=== PATIENT | male | born 1960 | race Caucasian/White ===

== ENCOUNTER 2021-05-06 05:10 | Inpatient (IN) | payer OTHER ==
[~2021-05-06] VITALS: Ht 188 cm; Wt 82.8 kg
[2021-05-06] MEDS ORDERED: LISI5 PO (06:37)
[2021-05-06] MEDS ORDERED: Naltrexone HCl50 MG PO (06:37)
[2021-05-06] MEDS ORDERED: CATAPRES-TTS 11 EAC1 PO (06:38)
[2021-05-06] MEDS ORDERED: ALBU2.5V5 INH (06:38)
[2021-05-06] MEDS ORDERED: ZYRTEC10 M2 PO (06:38)
[2021-05-06] MEDS ORDERED: HYDHCL25 PO (06:39)
[2021-05-06] MEDS ORDERED: TRAZ50 PO (06:39)
[2021-05-06 06:48] LABS: BASOPHILS ABSOLUTE AUTO 0.06 K/mm3 (0.00-0.23); BASOPHILS PERCENT AUTO 0 % (0-2); EOSINOPHILS ABSOLUTE AUTO 0.01 K/mm3 (0.00-0.68); EOSINOPHILS PERCENT AUTO 0 % (0-6); Hematocrit 40.8 % (37.0-53.0); Hemoglobin 13.8 g/dL (13.5-17.5); IMMATURE GRAN PERCENT AUTO 1 % (0-1); LYMPHOCYTES ABSOLUTE AUTO 0.95 K/mm3 (0.84-5.20); LYMPHOCYTES PERCENT AUTO 4 % (21-46); MONOCYTES ABSOLUTE AUTO 2.65 K/mm3 (0.16-1.47); MONOCYTES PERCENT AUTO 11 % (4-13); Mean Corpuscular HGB 31.4 pg (26.0-34.0); Mean Corpuscular HGB Conc 33.8 g/dL (31.5-36.5); Mean Corpuscular Volume 93 fL (80-100); Mean Platelet Volume 9.4 fL (9.1-12.4); NEUTROPHILS ABSOLUTE AUTO 21.12 K/mm3 (1.96-9.15); NEUTROPHILS PERCENT AUTO 85 % (41-73); Platelet Count 507 K/mm3 (150-400); RDW Coefficient Variation 12.4 % (11.7-14.2); RDW Standard Deviation 42.6 fL (35.1-46.3); Red Blood Cell Count 4.39 M/mm3 (4.30-5.90); White Blood Cell Count 24.99 K/mm3 (4.00-11.30)
[2021-05-06 06:59] LABS: Alanine Aminotransfer (ALT/SGP 63 U/L (12-78); Albumin, Blood 2.7 g/dL (3.4-5.0); Albumin/Globulin Ratio 0.5 (0.8-1.8); Alk Phos 129 U/L (50-136); Anion Gap 4 mmol/L (6-16); Aspartate Aminotrans (AST/SGOT 24 U/L (12-37); Blood Urea Nitrogen 22 mg/dL (8-24); Bun/Creatinine Ratio 20.6 (12.0-20.0); CO2, Blood 26 mmol/L (21-32); Calcium, Blood 9.5 mg/dL (8.5-10.1); Chloride, Blood 104 mmol/L (98-108); Creatinine, Blood 1.07 mg/dL (0.60-1.20); Globulin, Blood 5.4 g/dL (2.2-4.0); Glomerular Filtration Rate >60 (60-); Glucose, Blood 124 mg/dL (70-99); Potassium, Blood 4.5 mmol/L (3.5-5.5); Sodium, Blood 134 mmol/L (136-145); Total Protein, Blood 8.1 g/dL (6.4-8.2)
[2021-05-06 08:30] LABS: SARS-Cov-2 (COVID-19) PCR, MMC NEGATIVE (NEGATIVE)
[2021-05-06 11:52] LABS: Source, Urine Peds U Bag
[2021-05-06 11:56] LABS: Appearance, Urine Clear (Clear); Blood, Urine 4+ (Neg); Color, Urine Amber (P-Yellow); Glucose Qualitative, Urine Neg (Neg); Ketones, Urine Neg (Neg); Leukocyte Esterase, Urine 1+ (Neg); Nitrite, Urine Neg (Neg); Protein, Urine 2+ (Neg); Urobilinogen, Urine 2+ (Normal)
[2021-05-06 12:07] LABS: Bilirubin, Urine 1+ (Neg)
[2021-05-06 12:09] LABS: Bacteria Not Seen /hpf; Hyaline Casts Rare /lpf (0-2); Squamous Epithelial Cells Rare /hpf (Few)
[2021-05-06 12:10] LABS: WBC Cast Rare /lpf (0)
[2021-05-06 12:15] LABS: U Amphetamine Screen Not Detected; U Barbituate Screen Not Detected; U Benzodiazapine Screen Not Detected; U Cannabinoids Screen DETECTED; U Cocaine Screen Not Detected; U Methadone Screen Not Detected; U Methamphetamine Screen Not Detected; U Opiates Screen Not Detected; U Phencyclidine Screen Not Detected
[2021-05-06 12:16] LABS: U Buprenorphine Screen Not Detected; U Oxycodone Screen Not Detected; U Propoxyphene Screen Not Detected
[2021-05-06] MEDS ORDERED: MELA3 PO (13:22)
[2021-05-06 17:01] LABS: International Normalized Ratio 1.09; Prothrombin Time Results 11.4 Sec (9.7-11.5)
--- NOTE | 2021-05-06 17:43 | NUR ---
SHIFT SUMMARY PATIENT ADMITTED TO THE FLOOR AROUND MID-SHIFT. PATIENT ALERT AND ORIENTED THIS SHIFT. PATIENT INDEPENDENT TO THE BATHROOM. PATIENT MEDICATED 1X FOR ANXIETY PER EMAR, TEMPERATURE 101.6 THIS AFTTERNOON. PATIENT MEDICATED WITH TYLENOL FOR FEVER. PATIENT WITH MOIST, PRODUCTIVE COUGH THROUGHOUT THIS SHIFT. PATIENT ON IV ANTIBIOTICS FOR PNEUMONIA. ULTRASOUND COMPLETED DUE TO ABNORMAL CT OF UPPER CHEST/NECK. DVT IDENTIFIED, DR HARRINGTON NOTIFIED. HEPARIN DRIP ORDERED AND STARTED. PATIENT CURRENTLY SITTING UP IN BED WATCHING TELEVISION.
--- NOTE | 2021-05-06 18:14 | NUR ---
20 GAUGE IV STARTED TO RIGHT FOREARM. SMALL HEMATOMA NOTED ON INSERTION. FLUSHED IV WITH 20 ML OF NS. NO INCREASE IN SIZE OF HEMATOMA OR SWELLING NOTED. PATIENT DENIES PAIN. ABLE TO PULL BACK WITH BLOOD RETURN. ABLE TO PALPATE FLUID FLUSH ABOVE IV INSERTION SITE. IV HOOKED TO RUNNING FLUIDS PER ORDERS. IV REMAINS NON PAINFUL, NO CHANGES NOTED.
--- NOTE | 2021-05-06 20:38 | NUR ---
SPUTUM CUP LEFT FOR PT SAMPLE WHEN EXPECTORATED. PT ALERT AND W/O DISTRESS ON RA. PT STATES ABLE TO PROVIDE SAMPLES READILY AND W/O NEED FOR NT SX
[2021-05-07 01:39] LABS: BASOPHILS ABSOLUTE AUTO 0.06 K/mm3 (0.00-0.23); BASOPHILS PERCENT AUTO 0 % (0-2); EOSINOPHILS ABSOLUTE AUTO 0.09 K/mm3 (0.00-0.68); EOSINOPHILS PERCENT AUTO 0 % (0-6); Hematocrit 34.6 % (37.0-53.0); Hemoglobin 11.9 g/dL (13.5-17.5); IMMATURE GRAN ABSOLUTE AUTO 0.18 K/mm3 (0.00-0.10); IMMATURE GRAN PERCENT AUTO 1 % (0-1); LYMPHOCYTES ABSOLUTE AUTO 1.52 K/mm3 (0.84-5.20); LYMPHOCYTES PERCENT AUTO 7 % (21-46); MONOCYTES ABSOLUTE AUTO 2.78 K/mm3 (0.16-1.47); MONOCYTES PERCENT AUTO 13 % (4-13); Mean Corpuscular HGB 31.5 pg (26.0-34.0); Mean Corpuscular HGB Conc 34.4 g/dL (31.5-36.5); Mean Corpuscular Volume 92 fL (80-100); Mean Platelet Volume 8.7 fL (9.1-12.4); NEUTROPHILS ABSOLUTE AUTO 17.15 K/mm3 (1.96-9.15); NEUTROPHILS PERCENT AUTO 79 % (41-73); Platelet Count 396 K/mm3 (150-400); RDW Coefficient Variation 12.4 % (11.7-14.2); Red Blood Cell Count 3.78 M/mm3 (4.30-5.90); White Blood Cell Count 21.78 K/mm3 (4.00-11.30)
[2021-05-07 01:56] LABS: Alanine Aminotransfer (ALT/SGP 44 U/L (12-78); Albumin/Globulin Ratio 0.4 (0.8-1.8); Alk Phos 104 U/L (50-136); Anion Gap 5 mmol/L (6-16); Aspartate Aminotrans (AST/SGOT 15 U/L (12-37); Bilirubin, Total 0.7 mg/dL (0.1-1.0); Blood Urea Nitrogen 25 mg/dL (8-24); Bun/Creatinine Ratio 25.2 (12.0-20.0); CO2, Blood 24 mmol/L (21-32); Calcium, Blood 8.8 mg/dL (8.5-10.1); Chloride, Blood 109 mmol/L (98-108); Creatinine, Blood 0.99 mg/dL (0.60-1.20); Globulin, Blood 4.7 g/dL (2.2-4.0); Glomerular Filtration Rate >60 (60-); Glucose, Blood 120 mg/dL (70-99); Magnesium, Blood 1.8 mg/dL (1.6-2.4); Sodium, Blood 138 mmol/L (136-145); Total Protein, Blood 6.7 g/dL (6.4-8.2)
--- NOTE | 2021-05-07 04:36 | NUR ---
SUMMARY PT HAS COMPLAINED OF ANXIETY AND MUSCLE STIFFNESS. PT TX FOR ANXIETY PER EMAR W/ SOME RELIEF. PT STATES HE SLEPT SOME DURING SHIFT. PT CURRENTLY AWAKE IN NO DISTRESS. CALL LIGHT IN REACH.
--- NOTE | 2021-05-07 14:39 | NUR ---
SHIFT SUMMARY: TB RULE OUT PATIENT IS ALERT AND ORIENTED X4. VS ARE WNL AND IS ON RA. PATIENT DOES HAVE A HEADACHE AT TIMES. PAIN IS MEDICATED WITH PO PAIN MEDS. HE IS IND. IN THE ROOM. HE TOLERATES PO INTAKE AND IS VOIDING. PATIENT WAS ALSO ABLE TO SHOWER TODAY WHICH HE REPORTS "FELT GOOD". PATIENT STILL HAS HEPARIN DRIP RUNNING AND HAS ALSO RECIEVED ABX. HE IS CURRENTLY LAYING IN BED WATCHING TV. CALLS APPROPRIATLEY. CALL LIGHT WITHIN REACH. THE PLAN IS TO CONTINUE HEPARIN DRIP SINCE HE HAS A CLOT IN HIS JUGULAR. HE WILL ALSO CONTINUE ABX WITH FLUIDS.
[2021-05-07 15:10] LABS: FINAL INTERPRETATION Negative (.); HIV 1 AB Negative (Negative); HIV 2 AB Negative (Negative)
[2021-05-08 07:58] LABS: BASOPHILS ABSOLUTE AUTO 0.07 K/mm3 (0.00-0.23); BASOPHILS PERCENT AUTO 0 % (0-2); EOSINOPHILS ABSOLUTE AUTO 0.17 K/mm3 (0.00-0.68); EOSINOPHILS PERCENT AUTO 1 % (0-6); Hematocrit 38.3 % (37.0-53.0); Hemoglobin 12.5 g/dL (13.5-17.5); IMMATURE GRAN ABSOLUTE AUTO 0.18 K/mm3 (0.00-0.10); IMMATURE GRAN PERCENT AUTO 1 % (0-1); LYMPHOCYTES ABSOLUTE AUTO 1.61 K/mm3 (0.84-5.20); LYMPHOCYTES PERCENT AUTO 8 % (21-46); MONOCYTES ABSOLUTE AUTO 2.31 K/mm3 (0.16-1.47); MONOCYTES PERCENT AUTO 11 % (4-13); Mean Corpuscular HGB 31.4 pg (26.0-34.0); Mean Corpuscular HGB Conc 32.6 g/dL (31.5-36.5); Mean Corpuscular Volume 96 fL (80-100); NEUTROPHILS ABSOLUTE AUTO 16.69 K/mm3 (1.96-9.15); NEUTROPHILS PERCENT AUTO 79 % (41-73); Platelet Count 453 K/mm3 (150-400); RDW Coefficient Variation 12.5 % (11.7-14.2); RDW Standard Deviation 44.1 fL (35.1-46.3); Red Blood Cell Count 3.98 M/mm3 (4.30-5.90); White Blood Cell Count 21.03 K/mm3 (4.00-11.30)
[2021-05-08 08:06] LABS: Albumin, Blood 2.1 g/dL (3.4-5.0); Anion Gap 5 mmol/L (6-16); Blood Urea Nitrogen 16 mg/dL (8-24); Bun/Creatinine Ratio 15.7 (12.0-20.0); CO2, Blood 25 mmol/L (21-32); Calcium, Blood 9.3 mg/dL (8.5-10.1); Chloride, Blood 105 mmol/L (98-108); Creatinine, Blood 1.02 mg/dL (0.60-1.20); Glomerular Filtration Rate >60 (60-); Glucose, Blood 94 mg/dL (70-99); Phosphorus, Blood 3.9 mg/dL (2.5-4.9); Potassium, Blood 4.2 mmol/L (3.5-5.5); Sodium, Blood 135 mmol/L (136-145)
--- NOTE | 2021-05-08 18:57 | NUR ---
Alert and oriented x3 , able to make needs known . c/o generalized pain , lung and headache ,toradol and tramadol were given for pain management, it was effecive. Heparin bolus and rate adjustment was done twice per pharmacy order. Continue on negative pressure and droplet precaution . vital signs are stable. ABO therapy given , no adverse effects noted. Call light within reach . Continue to monitor.
--- NOTE | 2021-05-09 02:48 | NUR ---
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 HAD HIS BREATHING TREATMENT. HE ALSO HAD PAIN MEDS PER EMAR. BP ELEVATED BUT ON RECHECK WAS GOOD. WILL CONTINUE TO MONITOR HIM.
[2021-05-09 11:50] LABS: Albumin, Blood 1.7 g/dL (3.4-5.0); Anion Gap 4 mmol/L (6-16); BASOPHILS ABSOLUTE AUTO 0.08 K/mm3 (0.00-0.23); BASOPHILS PERCENT AUTO 1 % (0-2); Blood Urea Nitrogen 14 mg/dL (8-24); Bun/Creatinine Ratio 14.8 (12.0-20.0); CO2, Blood 26 mmol/L (21-32); Calcium, Blood 8.8 mg/dL (8.5-10.1); Chloride, Blood 106 mmol/L (98-108); Creatinine, Blood 0.95 mg/dL (0.60-1.20); EOSINOPHILS PERCENT AUTO 3 % (0-6); Glomerular Filtration Rate >60 (60-); Glucose, Blood 100 mg/dL (70-99); Hematocrit 33.3 % (37.0-53.0); Hemoglobin 10.8 g/dL (13.5-17.5); IMMATURE GRAN ABSOLUTE AUTO 0.12 K/mm3 (0.00-0.10); IMMATURE GRAN PERCENT AUTO 1 % (0-1); LYMPHOCYTES ABSOLUTE AUTO 1.44 K/mm3 (0.84-5.20); LYMPHOCYTES PERCENT AUTO 12 % (21-46); MONOCYTES ABSOLUTE AUTO 1.52 K/mm3 (0.16-1.47); MONOCYTES PERCENT AUTO 13 % (4-13); Mean Corpuscular HGB 30.6 pg (26.0-34.0); Mean Corpuscular HGB Conc 32.4 g/dL (31.5-36.5); Mean Corpuscular Volume 94 fL (80-100); Mean Platelet Volume 9.8 fL (9.1-12.4); NEUTROPHILS PERCENT AUTO 71 % (41-73); Phosphorus, Blood 4.1 mg/dL (2.5-4.9); Platelet Count 399 K/mm3 (150-400); Potassium, Blood 3.9 mmol/L (3.5-5.5); RDW Coefficient Variation 12.6 % (11.7-14.2); RDW Standard Deviation 43.8 fL (35.1-46.3); Red Blood Cell Count 3.53 M/mm3 (4.30-5.90); Sodium, Blood 136 mmol/L (136-145); White Blood Cell Count 11.86 K/mm3 (4.00-11.30)
--- NOTE | 2021-05-09 18:13 | NUR ---
Alert and oriented x3 , able to make needs known. C/O headache , and lung , 9/10 tramadol and toradol are given and it was effective. Heparin and vancomycin were discontinued . Anxiety was managed with atarax and it was effective. Denies any SOB ,chest pain and dizziness. No bleeding issue noted. vital signs are stable. call appropriately and call light within reach. Continue to monitor.
--- NOTE | 2021-05-10 06:05 | NUR ---
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 Results pending. Room air hemoptisis has resolved. Stopped IV heparin gtt yesterday started on xaralto. PT states smoking cessation & tx for chemical dependancy desired. Pleasant indep in room. 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
[2021-05-10 08:56] LABS: BASOPHILS ABSOLUTE AUTO 0.09 K/mm3 (0.00-0.23); BASOPHILS PERCENT AUTO 1 % (0-2); EOSINOPHILS ABSOLUTE AUTO 0.31 K/mm3 (0.00-0.68); EOSINOPHILS PERCENT AUTO 2 % (0-6); Hematocrit 35.7 % (37.0-53.0); Hemoglobin 12.2 g/dL (13.5-17.5); IMMATURE GRAN ABSOLUTE AUTO 0.18 K/mm3 (0.00-0.10); IMMATURE GRAN PERCENT AUTO 1 % (0-1); LYMPHOCYTES ABSOLUTE AUTO 1.56 K/mm3 (0.84-5.20); LYMPHOCYTES PERCENT AUTO 12 % (21-46); MONOCYTES ABSOLUTE AUTO 1.58 K/mm3 (0.16-1.47); MONOCYTES PERCENT AUTO 12 % (4-13); Mean Corpuscular HGB 30.8 pg (26.0-34.0); Mean Corpuscular HGB Conc 34.2 g/dL (31.5-36.5); Mean Corpuscular Volume 90 fL (80-100); Mean Platelet Volume 8.7 fL (9.1-12.4); NEUTROPHILS ABSOLUTE AUTO 8.98 K/mm3 (1.96-9.15); NEUTROPHILS PERCENT AUTO 71 % (41-73); Platelet Count 458 K/mm3 (150-400); RDW Coefficient Variation 12.2 % (11.7-14.2); RDW Standard Deviation 40.5 fL (35.1-46.3); Red Blood Cell Count 3.96 M/mm3 (4.30-5.90)
[2021-05-10 09:13] LABS: Albumin, Blood 2.1 g/dL (3.4-5.0); Anion Gap 7 mmol/L (6-16); Blood Urea Nitrogen 9 mg/dL (8-24); Bun/Creatinine Ratio 10.6 (12.0-20.0); CO2, Blood 24 mmol/L (21-32); Calcium, Blood 9.2 mg/dL (8.5-10.1); Chloride, Blood 105 mmol/L (98-108); Creatinine, Blood 0.85 mg/dL (0.60-1.20); Glomerular Filtration Rate >60 (60-); Glucose, Blood 103 mg/dL (70-99); Potassium, Blood 4.1 mmol/L (3.5-5.5); Sodium, Blood 136 mmol/L (136-145)
--- NOTE | 2021-05-10 18:47 | NUR ---
Alert and oriented x3 , able to make needs known. Today Trended upto 12.70 from 11.86. TORADOL , TRAMADOL AND Tylenol were given for pain management , it was effective. vital signs are stable. Independent with ADLS. call appropriately and call light within reach. Atarax was given for anxiety and was effective. Continue to monitor.
--- NOTE | 2021-05-11 04:40 | NUR ---
PT continues rule out TB for cavitory pneumonia 7 results still pending.Continues in airborne precautions. Cough productive, room air. obn xaralto 15 mg bid x 21 dayd to treat thrombus. PT CO chronic headache pain medicated with ultram & flexeril with helpful effect. Continues to be indep in room cooperative. Mild anxiety from chemical dependency relieved by atarax 25 mg po.
[2021-05-11 05:20] LABS: BASOPHILS ABSOLUTE AUTO 0.07 K/mm3 (0.00-0.23); BASOPHILS PERCENT AUTO 1 % (0-2); EOSINOPHILS ABSOLUTE AUTO 0.24 K/mm3 (0.00-0.68); EOSINOPHILS PERCENT AUTO 2 % (0-6); Hematocrit 34.8 % (37.0-53.0); Hemoglobin 11.9 g/dL (13.5-17.5); IMMATURE GRAN ABSOLUTE AUTO 0.13 K/mm3 (0.00-0.10); IMMATURE GRAN PERCENT AUTO 1 % (0-1); LYMPHOCYTES ABSOLUTE AUTO 1.83 K/mm3 (0.84-5.20); LYMPHOCYTES PERCENT AUTO 17 % (21-46); MONOCYTES ABSOLUTE AUTO 1.28 K/mm3 (0.16-1.47); MONOCYTES PERCENT AUTO 12 % (4-13); Mean Corpuscular HGB 30.7 pg (26.0-34.0); Mean Corpuscular HGB Conc 34.2 g/dL (31.5-36.5); Mean Corpuscular Volume 90 fL (80-100); Mean Platelet Volume 8.6 fL (9.1-12.4); NEUTROPHILS ABSOLUTE AUTO 7.02 K/mm3 (1.96-9.15); NEUTROPHILS PERCENT AUTO 66 % (41-73); Platelet Count 447 K/mm3 (150-400); RDW Coefficient Variation 12.2 % (11.7-14.2); RDW Standard Deviation 40.5 fL (35.1-46.3); Red Blood Cell Count 3.87 M/mm3 (4.30-5.90); White Blood Cell Count 10.57 K/mm3 (4.00-11.30)
[2021-05-11 13:08] LABS: QUANTIFERON MITOGEN VALUE 4.74 IU/mL (.); QUANTIFERON NIL VALUE 0.05 IU/mL (.); QUANTIFERON TB1 AG VALUE 0.09 IU/mL (.); QUANTIFERON TB2 AG VALUE 0.06 IU/mL (.); QUANTIFERON-TB GOLD PLUS Negative (Negative)
--- NOTE | 2021-05-11 19:23 | NUR ---
Alert and oriented x3 ,anxious . Patient is worry about possible cancer diagnose , clonzapam was given to help calm him down. Tramadol and Tylenol were given for pain management ,it was effective. WBC normalized to 10.57. Vital signs are stable. Continue to monitor.
--- NOTE | 2021-05-12 07:40 | NUR ---
PATIENT IS ALERT AND ORIENTED X4. NEGATIVE FOR TB OF THIS MORNING WHEN INFECTION PREVENTION CALLED TO SAY HE COULD BE TAKEN OUT OF AIRBORNE ISOLATION NOW. PATIENT WAS MEDICATED TWICE FOR PAIN WITH TRAMADOL, ALSO RECEIVED MEDICATION FOR ANXIETY, AND SPASMLIKE DISCOMFORT AFTER A STRONG COUGHING EPISODE. MARITZA IS ANXIOUS ABOUT GOING TO [place]. HE SAYS HE JUST WANTS TO GET IT OVERWITH
[2021-05-12] MEDS ORDERED: XARELTO15 MG PO (12:01)
[2021-05-12] MEDS ORDERED: VISBIOME 112.51 EACH PO (12:08)
[2021-05-12] MEDS ORDERED: AMOCLA875 PO (12:09)
[2021-05-12] MEDS ORDERED: CEPH500 PO (12:09)
--- NOTE | 2021-05-12 14:38 | NUR ---
Patient is alert and oriented x3 , able to make needs known.C/o headache and generalized pain , tramadol was given for pain management and it was effective. Atarax 25 mg po was given for anxiety , it was effective. Vital signs are stable. Call appropriately and call light within reach. Patient discharged, discharged instruction given and demonstrated understanding. Continue to monitor.
== END 2021-05-12 13:49 | disposition home or self-care (01) | DRG 871 ==
LOC: ER 05:10 → MEDS 10:40
PROVIDERS: Family Medicine; Nurse Practitioner Acute Care; Student in an Organized Health Care Education/Training Program; ADMIT Family Medicine
DX: A41.9 Sepsis, unspecified organism (principal); J18.9 Pneumonia, unspecified organism; I26.99 Other pulmonary embolism without acute cor pulmonale; C34.11 Malignant neoplasm of upper lobe, right bronchus or lung; J44.0 Chronic obstructive pulmonary disease with (acute) lower respiratory infection; R04.2 Hemoptysis; I82.C12 Acute embolism and thrombosis of left internal jugular vein; E87.1 Hypo-osmolality and hyponatremia; F10.20 Alcohol dependence, uncomplicated; G43.909 Migraine, unspecified, not intractable, without status migrainosus; Z20.822 Contact with and (suspected) exposure to COVID-19; F15.10 Other stimulant abuse, uncomplicated; F11.10 Opioid abuse, uncomplicated; I48.0 Paroxysmal atrial fibrillation; D63.0 Anemia in neoplastic disease; I10 Essential (primary) hypertension; D75.839 Thrombocytosis, unspecified; F17.210 Nicotine dependence, cigarettes, uncomplicated; Z79.899 Other long term (current) drug therapy
CPT/HCPCS: 36415; 71045; 71260; 80053; 80069; 81001; 83605; 83735; 84145; 84484; 85025; 85379; 85610; 85730; 86480; 86701; 86702; 87070; 87077; 87086; 87147; 87186; 87205; 93005; 93010; 93971; 94640; 94644; 94760; 96365; 96366; 96367; 96375; 99285-25; A9270; J0295; J0690; J0696; J1644; J1885; J2765; J3370; J7030; J7050; Q9967; U0004

== ENCOUNTER 2022-02-05 07:44 | Emergency (ER) | payer OTHER ==
[~2022-02-05] VITALS: Ht 188 cm; Wt 90.7 kg
[~2022-02-05 07:44] MED LIST: ALBU2.5V5 INH; AMOCLA875 PO; CATAPRES-TTS 11 EAC1 PO; CEPH500 PO; HYDHCL25 PO; LISI5 PO; MELA3 PO; Naltrexone HCl50 MG PO; TRAZ50 PO; VISBIOME 112.51 EACH PO; XARELTO15 MG PO; ZYRTEC10 M2 PO
[2022-02-05] MEDS ORDERED: ANORO ELLIPTA1 EACH INH (08:02)
[2022-02-05] MEDS ORDERED: OCUFLOX510 OP (09:13)
== END 2022-02-05 09:31 | disposition home or self-care (01) ==
LOC: ER 07:44
DX: H60.502 Unspecified acute noninfective otitis externa, left ear (principal); F17.200 Nicotine dependence, unspecified, uncomplicated; Z79.899 Other long term (current) drug therapy
CPT/HCPCS: A9270

== ENCOUNTER → 2023-07-13 | Outpatient (CLI) | payer OTHER ==
[~2023-07-13] MED LIST changes: +ANORO ELLIPTA1 EACH INH; +OCUFLOX510 OP
[2023-07-13 18:24] LABS: BASOPHILS ABSOLUTE AUTO 0.05 K/mm3 (0.00-0.23); BASOPHILS PERCENT AUTO 1 % (0-2); EOSINOPHILS ABSOLUTE AUTO 0.12 K/mm3 (0.00-0.68); EOSINOPHILS PERCENT AUTO 2 % (0-6); Hematocrit 47.5 % (37.0-53.0); Hemoglobin 16.2 g/dL (13.5-17.5); IMMATURE GRAN ABSOLUTE AUTO 0.04 K/mm3 (0.00-0.10); IMMATURE GRAN PERCENT AUTO 1 % (0-1); LYMPHOCYTES ABSOLUTE AUTO 1.96 K/mm3 (0.84-5.20); LYMPHOCYTES PERCENT AUTO 25 % (21-46); MONOCYTES ABSOLUTE AUTO 0.94 K/mm3 (0.16-1.47); MONOCYTES PERCENT AUTO 12 % (4-13); Mean Corpuscular HGB 31.3 pg (26.0-34.0); Mean Corpuscular HGB Conc 34.1 g/dL (31.5-36.5); Mean Corpuscular Volume 92 fL (80-100); Mean Platelet Volume 9.6 fL (9.1-12.4); NEUTROPHILS ABSOLUTE AUTO 4.84 K/mm3 (1.96-9.15); NEUTROPHILS PERCENT AUTO 61 % (41-73); Platelet Count 303 K/mm3 (150-400); RDW Coefficient Variation 12.7 % (11.7-14.2); Red Blood Cell Count 5.17 M/mm3 (4.30-5.90); White Blood Cell Count 7.95 K/mm3 (4.00-11.30)
[2023-07-13 19:12] LABS: CHOL/HDL RATIO 6.3; Cholesterol 214 mg/dL (50-200); HDL Cholesterol 34 mg/dL (>39); LDL/HDL RATIO Unable to Calculate; Low Density Lipoprotein Chol Unable to Calculate mg/dL (0-110); Triglycerides 407 mg/dL (30-160); Very Low Density Lipoprot Chol Unable to Calculate mg/dL (6-32)
[2023-07-13 19:30] LABS: LDL Direct Measurement 118 mg/dL (0-130)
[2023-07-15 10:04] LABS: A/G RATIO 2.3 (1.2-2.2); BILIRUBIN, TOTAL 0.9 mg/dL (0.0-1.2); CALCIUM, SERUM 9.8 mg/dL (8.6-10.2); CREATININE, SERUM 0.81 mg/dL (0.76-1.27); GLOBULIN, TOTAL 2.2 g/dL (1.5-4.5); POTASSIUM, SERUM 4.7 mmol/L (3.5-5.2); PROTEIN, TOTAL, SERUM 7.3 g/dL (6.0-8.5)
== END ==
LOC: LAB SHORT 12:00 → LAB 12:00
PROVIDERS: Family Medicine
DX: I10 Essential (primary) hypertension (principal); Z79.899 Other long term (current) drug therapy
CPT/HCPCS: 80053; 80061; 82306; 83721; 84443; 85025

== ENCOUNTER 2023-08-13 23:24 | Emergency (ER) | payer OTHER ==
[~2023-08-13] VITALS: Ht 185.4 cm; Wt 92.5 kg
[2023-08-13 23:35] VITALS: BP 179/101
== END 2023-08-14 01:31 | disposition home or self-care (01) ==
LOC: ER 23:24
DX: M79.621 Pain in right upper arm (principal); F41.9 Anxiety disorder, unspecified; F17.200 Nicotine dependence, unspecified, uncomplicated; J44.9 Chronic obstructive pulmonary disease, unspecified
CPT/HCPCS: 93971; 99283-25

== ENCOUNTER 2024-12-13 08:42 | Emergency (ER) | payer OTHER ==
[~2024-12-13] VITALS: Ht 185.4 cm; Wt 97.0 kg
[~2024-12-13 08:42] MED LIST changes: +ALBU90OI INH; +ANORO ELLIPTA1 EAC1 INH; +Ativan1 MG PO; +ELIQUIS5 M2 PO; +ELIQUIS5 M4 PO; +GABA300 PO; +LOSA50 PO; +PRAZ5 PO; +QUETIAPINE FUM10011 PO; +QUETIAPINE FUM150 M1 PO; +TRELEGY ELLIPT1 EACH INH
[2024-12-13 10:55] VITALS: BP 162/96
== END 2024-12-13 11:21 | disposition home or self-care (01) ==
LOC: ER 08:42
DX: M79.601 Pain in right arm (principal); J44.9 Chronic obstructive pulmonary disease, unspecified; Z79.01 Long term (current) use of anticoagulants; Z79.899 Other long term (current) drug therapy; F17.200 Nicotine dependence, unspecified, uncomplicated; Z59.89 Other problems related to housing and economic circumstances
CPT/HCPCS: 93931; 93971; 99283-25

== ENCOUNTER → 2025-03-14 | Outpatient (CLI) | payer OTHER | LOC: LAB SHORT 13:58 → LAB 13:58 | DX: R79.89 Other specified abnormal findings of blood chemistry (principal) | CPT/HCPCS: 82607; 82746 ==